=== PATIENT | male | born 1975 | race Two or more races ===

== ENCOUNTER 2018-01-17 10:37 | Emergency (ER) | payer SELFPAY ==
[~2018-01-17] VITALS: Ht 172.7 cm; Wt 68.0 kg
--- NOTE | 2018-01-17 10:37 | NUR ---
BIB [facility] AND [employer], PT WAS FOUND [address]ALK[facility] [address] [facility]. NO COMPLAINTS.
[2018-01-17] MEDS ORDERED: LORAZEPAM 1 MG TABLET ONE (11:23)
[2018-01-17] MEDS ORDERED: LORAZEPAM 1 MG TABLET PO ONE (11:30)
[2018-01-17 11:34] LABS: BASOPHILS # (AUTO) 0.1 /CMM (0.0-0.2); BASOPHILS % (AUTO) 1.2 % (0.0-2.0); EOSINOPHILS # (AUTO) 0.1 /CMM (0.0-0.7); EOSINOPHILS % (AUTO) 1.1 % (0.0-6.0); HEMATOCRIT 43 % (39-51); HEMOGLOBIN 14.8 g/dL (13.5-17.5); LYMPHOCYTES # (AUTO) 1.5 /CMM (0.8-4.8); LYMPHOCYTES % (AUTO) 29.5 % (20.0-44.0); MEAN CORPUSCULAR HEMOGLOBIN 31 PG (26.0-33.0); MEAN CORPUSCULAR HGB CONC 35 g/dl (31.0-36.0); MEAN CORPUSCULAR VOLUME 91 fL (80-96); MONOCYTES # (AUTO) 0.5 /CMM (0.1-1.30); MONOCYTES % (AUTO) 9.1 % (2.0-12.0); NEUTROPHILS # (AUTO) 2.9 /CMM (1.8-8.9); NEUTROPHILS % (AUTO) 59.1 % (43.0-81.0); PLATELET COUNT (AUTO) 285 /CMM (150-450); RDW COEFFICIENT OF VARIATION 13.6 (11.5-15.0); RED BLOOD CELL COUNT(AUTO) 4.73 MIL/uL (4.5-6.0); WHITE BLOOD COUNT (AUTO) 5.1 K/uL (4.3-11.0)
[2018-01-17 11:45] LABS: CALCIUM, SERUM 8.6 mg/dL (8.5-10.1); CARBON DIOXIDE 29 mmol/L (21-32); CHLORIDE 103 mmol/L (98-107); GLUCOSE 145 mg/dL (74-106); POTASSIUM 3.9 mmol/L (3.5-5.1); SODIUM SERUM 137 mmol/L (136-145); UREA NITROGEN, BLOOD 9 mg/dL (7-18)
--- NOTE | 2018-01-17 11:45 | NUR ---
Patient is resting comfortably in bed with eyes closed. Easily aroused. VSS
[2018-01-17 11:51] LABS: ALANINE AMINOTRANSFERASE 20 U/L (12-78); ALBUMIN 3.7 g/dL (3.4-5.0); ALCOHOL, BLOOD < 3 mg/dL (0-0); ALKALINE PHOSPHATASE 38 U/L (46-116); ASPARTATE AMINOTRANSFERASE 16 U/L (15-37); BILIRUBIN,DIRECT 0.1 mg/dL (0.0-0.2); BILIRUBIN,TOTAL 0.3 mg/dL (0.2-1.0); TOTAL PROTEIN, SERUM 7.1 g/dL (6.4-8.2)
--- NOTE | 2018-01-17 12:35 | NUR ---
Patient is resting comfortably in bed with eyes closed. Easily aroused. VSS
[2018-01-17 13:08] LABS: APPEARANCE,URINE Clear (CLEAR); BILIRUBIN,URINE Negative (NEGATIVE); BLOOD, URINE Negative Ery/uL (NEGATIVE); COLOR,URINE Yellow (YELLOW); KETONES,URINE Negative (NEGATIVE); LEUKOCYTE ESTERASE ,URINE Negative (NEGATIVE); NITRITE, URINE Negative (NEGATIVE); PH,URINE 7.5 (5.0-8.0); PROTEIN,URINE Negative (NEGATIVE); UGLUCOSE Negative (NEGATIVE); UROBILINOGEN,URINE 0.2 EU/dL (0.2)
--- NOTE | 2018-01-17 13:55 | NUR ---
Patient is resting comfortably in bed with eyes closed. Easily aroused. VSS
--- NOTE | 2018-01-17 14:45 | NUR ---
Crisis screening was requested by Driller Helper Taina Dukes and ER Charge Nurse Gaurang. Patient is a 43-year-old male who was brought in by police after he was found [place] a [place] acting bizarrely and disruptive. He was not answering any questions from police and had to be restrained due to his aggressive and bizarre behavior. The patient presents as disheveled and mood was expansive. Thought processes were impaired and speech was incoherent. SW tried to interview the patient however patient was not making any sense and would answer by stating frog or ask whatever you want. The patient also became verbally aggressive and was non-compliant with further questioning. He continues to display bizarre behavior. Prior to interview, the patient had a bowel movement inside a plastic cup near the bedside. He is currently appearing to have some psychotic processes which could possibly be due to substance use. Information was communicated to the physicians judicial assistant Hosea Santos who will relay the information to Dr. Lowry to examine whether the patient needs an antipsychotic prior to being cleared for discharge. Plan: Taina Dukes spoke with Dr. Augustine who will medicate pt. with Zyprexa. Pt.is not meeting 5150 criteria. Pt was referred to [facility] ([address] [place] [id number]; [phone]) and [facility] ([address] [place] [address]; [phone]). Addendum: 01/17/18 at 1519 by MIGUEL WEBB Plan: Taina Dukes spoke with Dr. Lowry who will medicate pt. with Zyprexa. Pt.is not meeting 7435
[2018-01-17] MEDS ORDERED: OLANZAPINE 5 MG TABLET PO ONE (15:00)
[2018-01-17] MEDS ORDERED: OLANZAPINE 5 MG TABLET ONE (15:08)
--- NOTE | 2018-01-17 15:45 | NUR ---
S[facility]TER AT [employer] [facility] CNA.
[2018-01-17 17:17] VITALS: BP 134/87
--- NOTE | 2018-01-17 17:17 | NUR ---
Patient discharged to home in stable condition. Written and verbal after care instructions given. Patient verbalizes understanding of instruction.
== END 2018-01-17 17:18 | disposition home or self-care (01) ==
LOC: ER 10:40
DX: R41.82 Altered mental status, unspecified (principal); R46.2 Strange and inexplicable behavior
CPT/HCPCS: 36415; 80048-TC; 80076-TC; 80305; 81000-TC; 85025-TC; A4606; G0480; Z7610